=== PATIENT | male | born 1950 | race Asian ===

== ENCOUNTER 2024-07-21 12:11 | Emergency (ER) | payer MEDICARE ==
[~2024-07-21] VITALS: Ht 175.3 cm; Wt 81.8 kg
[2024-07-21 12:12] VITALS: TEMP 97.9
[2024-07-21] MEDS ORDERED: TERA2CAP82 PO (12:16)
[2024-07-21] MEDS ORDERED: ALLO300T2 PO (12:16)
[2024-07-21] MEDS ORDERED: ROSU40TA88 PO (12:16)
[2024-07-21] MEDS ORDERED: FAMO20 PO (12:16)
[2024-07-21] MEDS ORDERED: FINA5TAB41 PO (12:16)
[2024-07-21 12:36] LABS: BASOPHILS % (AUTO) 0.7 % (0.0-2.0); EOSINOPHILS % (AUTO) 4.2 % (1.0-6.0); HEMOGLOBIN 12.8 g/dL (13.5-17.5); LYMPHOCYTES # (AUTO) 1.4 K/uL (1.0-4.8); LYMPHOCYTES % (AUTO) 28.5 % (22.0-44.0); MEAN CORPUSCULAR HEMOGLOBIN 32.9 pg (26.0-34.0); MEAN CORPUSCULAR HGB CONC 33.6 G/dL (31.0-37.0); MEAN CORPUSCULAR VOLUME 98 fL (80-100); MONOCYTES # (AUTO) 0.3 K/uL (0.1-1.0); MONOCYTES % (AUTO) 5.9 % (2.0-9.0); NEUTROPHILS % (AUTO) 60.7 % (40.0-70.0); PLATELET COUNT (AUTO) 175 K/uL (150-450); RED BLOOD CELL COUNT(AUTO) 3.88 MIL/uL (4.50-5.90); RED CELL DISTRIBUTION WIDTH 12.7 % (11.5-14.5)
[2024-07-21 12:43] LABS: ANION GAP 6 mmol/L (8-16); CALCIUM, TOTAL 8.5 mg/dL (8.8-10.5); CARBON DIOXIDE 30 mmol/L (22-29); CHLORIDE 106 mmol/L (98-107); CREATININE 1.17 mg/dL (0.60-1.30); GLOMERULAR FILTR. RATE CALC > 60 mL/min (>60); GLUCOSE,RANDOM 83 mg/dL (70-110); POTASSIUM 4.3 mmol/L (3.5-5.1); SODIUM SERUM 142 mmol/L (136-145); UREA NITROGEN, BLOOD 18 mg/dL (7-18)
[2024-07-21 12:51] LABS: TROPONIN I-HIGH SENSITIVITY 34 ng/L (<76)
[2024-07-21 15:00] VITALS: BP 141/77; PULSE 57; RESP 13; O2SAT 98
[2024-07-21] MEDS ORDERED: MECL-302 PO (15:23)
== END 2024-07-21 15:48 | disposition home or self-care (01) ==
LOC: EMS 12:11
DX: R42 Dizziness and giddiness (principal); E78.00 Pure hypercholesterolemia, unspecified; K21.9 Gastro-esophageal reflux disease without esophagitis; Z79.899 Other long term (current) drug therapy
CPT/HCPCS: 80048; 84484; 85025; 93005; 99284